=== PATIENT | male | born 1985 | race Caucasian/White ===

== ENCOUNTER 2016-05-28 19:12 | Inpatient (IN) | payer OTHER ==
[~2016-05-28] VITALS: Ht 188 cm; Wt 113.4 kg
[~2016-05-28 19:12] MED LIST: Dexamethasone 4mg/ml vial ONE; Ketorolac 30mg Inj ONE; LR 1000ml ONE; Lidocaine 1% MPF 10mg/ml 5ml ONE; Metoclopramide 10mg/2ml Inj ONE; Midazolam 2mg/2ml Inj ONE; Propofol 10mg/ml 20ml IV ONE; Succinylcholine 20mg/ml 10ml vial ONE; Zemuron 50mg/5ml Inj IV ONE; fentaNYL 250mcg/5ml ONE
[2016-05-28] MEDS ORDERED: Morphine Sulfate 4mg/ml Inj IVP ONE (19:45)
[2016-05-28] MEDS ORDERED: Tubing IV Cassette IV ONE (19:46)
--- NOTE | 2016-05-28 19:47 | Emergency Room Report ---
History of Present Illness General Chief Complaint: Abdominal Pain Source: Patient Present Illness HPI Patient presents with complaints of right lower quadrant abdominal pain reports onset last night patient had an episode of vomiting as well Questionable one episode of diarrhea however as the pain localized to the right lower quadrant he was concerning came to the ER Denies any fevers or chills denies any chest pain or shortness of breath pain is 5/10 patient denies any previous surgeries denies any fall or trauma pain is sharp denies any radiation Allergies: Coded Allergies: No Known Allergies (Unverified , 05/28/16) Patient History Past Medical History: see triage record Pertinent Family History: none Reviewed Nursing Documentation: PMH: Agreed, PSxH: Agreed Nursing Documentation-PMH Past Medical History: No Stated History Review of Systems All Other Systems: negative except mentioned in HPI Physical Exam Vital Signs Date Time Temp Pulse Resp B/P Pulse Ox O2 Delivery O2 Flow Rate FiO2 05/28/16 19:19 98.1 95 14 146/92 96 Room Air Sp02 EP Interpretation: reviewed, normal General Appearance: well appearing, no apparent distress Head: normocephalic, atraumatic Eyes: bilateral eye EOMI, bilateral eye PERRL ENT: hearing grossly normal, normal pharynx, TMs + canals normal, uvula midline Neck: full range of motion, supple, no meningismus, no bony tend Respiratory: lungs clear, normal breath sounds, no rhonchi, no respiratory distress, no retraction, no accessory muscle use Cardiovascular #1: normal peripheral pulses, regular rate, rhythm, no edema, no gallop, no JVD, no murmur Gastrointestinal: normal bowel sounds, soft, no mass, no organomegaly, non- distended, no guarding, no hernia, no pulsatile mass, no rebound, tenderness - Right lower quadrant Genitourinary: no CVA tenderness Neurologic: oriented x3, responsive, 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 designer III-XII nml as tested, motor strength/ tone normal, sensory intact Psychiatric: mood/affect normal Skin: normal color, no rash, warm/dry, palpation normal Lymphatic: normal inspection, no adenopathy Medical Decision Making Diagnostic Impression: Primary Impression: Acute appendicitis ER Course With the history exam and presentation, multiple differentials considered, including but not limited to appendicitis, gastritis, cholecystitis, diverticulitis Patient's CT exam does reveal evidence of acute appendicitis patient was provided with IV antibiotics and admitted for further inpatient care In consultation with general surgery Labs Test 05/28/16 19:40 White Blood Count 18.4 K/UL (4.8-10.8) Red Blood Count 4.76 M/UL (4.70-6.10) Hemoglobin 15.6 G/DL (14.2-18.0) Hematocrit 42.7 % (42.0-52.0) Mean Corpuscular Volume 90 FL (80-99) Mean Corpuscular Hemoglobin 32.8 PG (27.0-31.0) Mean Corpuscular Hemoglobin Concent 36.6 G/DL (32.0-36.0) Red Cell Distribution Width 11.2 % (11.6-14.8) Platelet Count 166 K/UL (150-450) Mean Platelet Volume 8.7 FL (6.5-10.1) Neutrophils (%) (Auto) 85.9 % (45.0-75.0) Lymphocytes (%) (Auto) 6.4 % (20.0-45.0) Monocytes (%) (Auto) 6.9 % (1.0-10.0) Eosinophils (%) (Auto) 0.1 % (0.0-3.0) Basophils (%) (Auto) 0.7 % (0.0-2.0) Prothrombin Time 10.3 SEC (9.30-11.50) Prothromb Time International Ratio 1.0 (0.9-1.1) Activated Partial Thromboplast Time 26 SEC (23-33) Urine Color Pale yellow Urine Appearance Clear Urine pH 8 (4.5-8.0) Urine Specific [place] 1.010 (1.005-1.035) Urine Protein 1+ (NEGATIVE) Urine Glucose (UA) Negative (NEGATIVE) Urine Ketones Negative (NEGATIVE) Urine Occult Blood Negative (NEGATIVE) Urine Nitrite Negative (NEGATIVE) Urine Bilirubin Negative (NEGATIVE) Urine Urobilinogen Normal MG/DL (0.0-1.0) Urine Leukocyte Esterase Negative (NEGATIVE) Urine RBC 0-2 /HPF (0 - 0) Urine WBC 0-2 /HPF (0 - 0) Urine Squamous Epithelial Cells None /LPF (NONE/OCC) Urine Bacteria Few /HPF (NONE) Sodium Level 137 mEQ/L (135-145) Potassium Level 3.5 mEQ/L (3.4-4.9) Chloride Level 95 mEQ/L (98-107) Carbon Dioxide Level 25 mEQ/L (20-30) Anion Gap 17 (5-15) Blood Urea Nitrogen 6 mg/dL (7-23) Creatinine 0.9 mg/dL (0.7-1.2) Estimat Glomerular Filtration Rate > 60 mL/min (>60) Glucose Level 122 mg/dL (74-106) Calcium Level 9.0 mg/dL (8.6-10.2) Total Bilirubin 0.8 mg/dL (0.0-1.2) Aspartate Amino Transf (AST/SGOT) 24 U/L (5-40) Alanine Aminotransferase (ALT/SGPT) 39 U/L (3-41) Alkaline Phosphatase 64 U/L (40-129) Total Protein 7.2 g/dL (6.6-8.7) Albumin 4.4 g/dL (3.5-5.2) Globulin 2.8 g/dL Albumin/Globulin Ratio 1.5 (1.0-2.7) Lipase 26 U/L (< 60) CT/MRI/US Diagnostic Results CT/MRI/US Diagnostic Results : Impression CT abdomen pelvis read by radiology as evidence of acute appendicitis no abscess Last Vital Signs Date Time Temp Pulse Resp B/P Pulse Ox O2 Delivery O2 Flow Rate FiO2 05/28/16 19:19 98.1 95 14 146/92 96 Room Air Status: improved Disposition: ADMITTED INPATIENT Condition: Serious Scripts No Active Prescriptions or Reported Meds TRINITY MAIN D.O. May 28, 2016 19:46
[2016-05-28 20:00] LABS: MEAN CORPUSCULAR HEMOGLOBIN 32.8 PG (27.0-31.0); MEAN CORPUSCULAR HGB CONC 36.6 G/DL (32.0-36.0); MEAN CORPUSCULAR VOLUME 90 FL (80-99); MEAN PLATELET VOLUME 8.7 FL (6.5-10.1); PLATELET COUNT 166 K/UL (150-450); RED BLOOD COUNT 4.76 M/UL (4.70-6.10); RED CELL DISTRIBUTION WIDTH 11.2 % (11.6-14.8); WHITE BLOOD COUNT 18.4 K/UL (4.8-10.8)
[2016-05-28 20:01] LABS: BASOPHILS % (AUTO) 0.7 % (0.0-2.0); EOSINOPHILS % (AUTO) 0.1 % (0.0-3.0); LYMPHOCYTES % (AUTO) 6.4 % (20.0-45.0); MONOCYTES % (AUTO) 6.9 % (1.0-10.0); NEUTROPHILS % (AUTO) 85.9 % (45.0-75.0)
[2016-05-28 20:03] LABS: APPEARANCE,URINE CLEAR; KETONES,URINE NEGATIVE (NEGATIVE); LEUKOCYTE ESTERASE ,URINE NEGATIVE (NEGATIVE); NITRITE,URINE NEGATIVE (NEGATIVE); PH,URINE 8 (4.5-8.0); PROTEIN,URINE 1+ (NEGATIVE); UROBILINOGEN,URINE NORMAL MG/DL (0.0-1.0)
[2016-05-28 20:11] LABS: BACTERIA,URINE FEW /HPF; RBC,URINE 0-2 /HPF (0 - 0); WBC,URINE 0-2 /HPF (0 - 0)
[2016-05-28 20:13] LABS: PROTHROMBIN TIME 10.3 SEC (9.30-11.50)
[2016-05-28 20:21] LABS: ALANINE AMINOTRANSFERASE 39 U/L (3-41); ALBUMIN/GLOBULIN RATIO 1.5 (1.0-2.7); ANION GAP 17 (5-15); ASPARTATE AMINO TRANSFERASE 24 U/L (5-40); CARBON DIOXIDE 25 mEQ/L (20-30); CHLORIDE 95 mEQ/L (98-107); CREATININE 0.9 mg/dL (0.7-1.2); GLOMERULAR FILTRATION RATE > 60 mL/min (>60); HEMOLYSIS 10; LIPASE 26 U/L (< 60); POTASSIUM 3.5 mEQ/L (3.4-4.9); SODIUM 137 mEQ/L (135-145); TOTAL PROTEIN 7.2 g/dL (6.6-8.7)
[2016-05-28] MEDS ORDERED: Piperacillin/Tazobactam 3.375 GM in NS 110 ML IVPB ONE (20:45)
[2016-05-28] MEDS ORDERED: NS 110 ML ONE (20:51)
[2016-05-28] MEDS ORDERED: Zosyn 3.375gm inj ONE (20:51)
[2016-05-28 21:21] VITALS: BP 122/74
[2016-05-28] MEDS ORDERED: Bupivacaine w/Epi 0.25% 30ml Vial INJ ONE (22:12)
[2016-05-28 22:15] VITALS: BP 129/79
--- NOTE | 2016-05-28 22:32 | Anethesia Preoperative Eval ---
Anesthesia Pre-op PMH/ROS General Date of Evaluation: May 28, 2016 Anesthesiologist: José Miguel ASA Score: ASA 2 - Emergency Mallampati Score Class I : Soft palate, uvula, fauces, pillars visible Class II: Soft palate, uvula, fauces visible Class III: Soft palate, base of uvula visible Class IV: Only hard plate visible Mallampati Classification: Class II Surgeon: Emmett Diagnosis: Acute appendicitis Surgical Procedure: Laparoscopic appendectomy Anesthesia History: none Family History: no anesthesia problems Allergies: Coded Allergies: No Known Allergies (Unverified , 05/28/16) Medications: see eMAR Past Medical History Cardiovascular: Denies: CAD, HTN, RI, arrhythmia, other, valve dz Pulmonary: Denies: COPD, LOU, asthma, other Gastrointestinal/Genitourinary: Reports: GERD, Denies: CRI, ESRD, other Neurologic/Psychiatric: Denies: CVA, TIA, dementia, depression/anxiety, other Endocrine: Denies: DM, hypothyroidism, other, steroids HEENT: Denies: [place] (L), [place] (R), cataract (L), cataract (R), glaucoma, other Hematology/Immune: Denies: DVT, anemia, bleeding disorder, other Musculoskeletal/Integumentary: Denies: DDD, DJD, OA, RA, edema, other PSxH Narrative: Denies Anesthesia Pre-op Phys. Exam Physician Exam Last Vital Signs Date Time Temp Pulse Resp B/P Pulse Ox O2 Delivery O2 Flow Rate FiO2 05/28/16 22:15 84 22 129/79 97 Room Air 05/28/16 21:21 99.5 Constitutional: NAD Cardiovascular: RRR Respiratory: CTA Airway Exam Mallampati Score: Class II MO: limited TMD: <6FB ROM: full Teeth: intact Anesthesia Pre-op A/P Labs Hematology Test 05/28/16 19:40 White Blood Count 18.4 K/UL (4.8-10.8) H Red Blood Count 4.76 M/UL (4.70-6.10) Hemoglobin 15.6 G/DL (14.2-18.0) Hematocrit 42.7 % (42.0-52.0) Mean Corpuscular Volume 90 FL (80-99) Mean Corpuscular Hemoglobin 32.8 PG (27.0-31.0) H Mean Corpuscular Hemoglobin Concent 36.6 G/DL (32.0-36.0) H Red Cell Distribution Width 11.2 % (11.6-14.8) L Platelet Count 166 K/UL (150-450) Mean Platelet Volume 8.7 FL (6.5-10.1) Neutrophils (%) (Auto) 85.9 % (45.0-75.0) H Lymphocytes (%) (Auto) 6.4 % (20.0-45.0) L Monocytes (%) (Auto) 6.9 % (1.0-10.0) Eosinophils (%) (Auto) 0.1 % (0.0-3.0) Basophils (%) (Auto) 0.7 % (0.0-2.0) Coagulation Test 05/28/16 19:40 Prothrombin Time 10.3 SEC (9.30-11.50) Prothromb Time International Ratio 1.0 (0.9-1.1) Activated Partial Thromboplast Time 26 SEC (23-33) Chemistry Test 05/28/16 19:40 Sodium Level 137 mEQ/L (135-145) Potassium Level 3.5 mEQ/L (3.4-4.9) Chloride Level 95 mEQ/L (98-107) L Carbon Dioxide Level 25 mEQ/L (20-30) Anion Gap 17 (5-15) H Blood Urea Nitrogen 6 mg/dL (7-23) L Creatinine 0.9 mg/dL (0.7-1.2) Estimat Glomerular Filtration Rate > 60 mL/min (>60) Glucose Level 122 mg/dL (74-106) H Calcium Level 9.0 mg/dL (8.6-10.2) Total Bilirubin 0.8 mg/dL (0.0-1.2) Aspartate Amino Transf (AST/SGOT) 24 U/L (5-40) Alanine Aminotransferase (ALT/SGPT) 39 U/L (3-41) Alkaline Phosphatase 64 U/L (40-129) Total Protein 7.2 g/dL (6.6-8.7) Albumin 4.4 g/dL (3.5-5.2) Globulin 2.8 g/dL Albumin/Globulin Ratio 1.5 (1.0-2.7) Lipase 26 U/L (< 60) Risk Assessment & Plan Assessment: ASA IIE Plan: GA-ETT Status Change Before Surgery: No Pre-Antibiotics Drug: TBD SCOTT SMILEY M.D. May 28, 2016 22:32
[2016-05-28] MEDS ORDERED: LR 1000ml 1,000 ML IVLG SCH (23:20)
--- NOTE | 2016-05-28 23:21 | Immediate Post-Op Evaluation ---
Immediate Post-Op Evalulation Immediate Post-Op Evalulation Procedure: Laparoscopic appendectomy Date of Evaluation: May 28, 2016 Time of Evaluation: 11:56 IV Fluids: 1L Blood Products: 0 Estimated Blood Loss: 50 Urinary Output: 0 Blood Pressure Systolic: 128 Blood Pressure Diastolic: 85 Pulse Rate: 99 Respiratory Rate: 16 O2 Sat by Pulse Oximetry: 100 Temperature (Fahrenheit): 98.7 Pain Score (1-10): 0 Nausea: No Vomiting: No Complications 0 Patient Status: awake, reacts, patent, none Hydration Status: adequate Drug: Zosyn 3.375g Given Within 1 Hr of Incision: Yes Time Given: 10:05 SCOTT SMILEY M.D. May 28, 2016 23:21
[2016-05-28] MEDS ORDERED: Labetalol 5mg/ml 20ml vial IV PRN (23:30)
[2016-05-28] MEDS ORDERED: fentaNYL 100 mcg/2 mL IV PRN (23:30)
[2016-05-28] MEDS ORDERED: Hydromorphone 0.5mg/0.5ml inj IVP PRN (23:30)
[2016-05-28] MEDS ORDERED: Metoclopramide 10mg/2ml Inj IVP PRN (23:30)
[2016-05-28] MEDS ORDERED: DiphenhydrAMINE 50mg/ml Inj IVP PRN (23:30)
[2016-05-28] MEDS ORDERED: Ketorolac 30mg Inj IV PRN (23:30)
[2016-05-28] MEDS ORDERED: Midazolam 2mg/2ml Inj IVP PRN (23:30)
[2016-05-28 23:49] VITALS: BP 128/85
--- NOTE | 2016-05-28 23:50 | Pre-Procedure Note/Attestation ---
Pre-Procedure Note/Attestation Complete Prior to Procedure Planned Procedure: not applicable Procedure Narrative: laparoscopic appendeectomy, possible open procedure Indications for Procedure Pre-Operative Diagnosis: acute appendicitis Attestation I attest that I discussed the nature of the procedure; its benefits; risks and complications; and alternatives (and the risks and benefits of such alternatives ), prior to the procedure, with the patient (or the patient's legal associate sales representative). I attest that, if there was a reasonable possibility of needing a blood transfusion, the patient (or the patient's legal associate sales representative) was given the [facility] standardized written summary, pursuant to the [place] [place] Blood Safety Act ([place] Health and Safety Code # 1645, as amended). I attest that I re-evaluated the patient just prior to the surgery and that there has been no change in the patient's H&P, except as documented below:none JENNIFER GUIDRY May 28, 2016 23:50
--- NOTE | 2016-05-28 23:53 | Brief Operative Note ---
Immediate Post Operative Note Operative Note Pre-op Diagnosis: acute appendicitis Procedure: laparoscopic appendectomy Post-op Diagnosis: same Post-op Diagnosis: same as pre-op Surgeon: Omar Anesthesiologist: howard calvert Anesthesia: general, local Specimen: yes Complications: none Condition: stable Estimated Blood Loss: minimal Drains: none Implant(s) used?: No JENNIFER GUIDRY May 28, 2016 23:53
[2016-05-28 23:54] VITALS: BP 121/79
[2016-05-28 23:57] VITALS: BP 121/86
[2016-05-29] VITALS (7 sets, daily range): BP systolic 118–129; BP diastolic 69–77
[2016-05-29] MEDS ORDERED: Norco 5mg/325mg tab ORAL PRN
[2016-05-29] MEDS ORDERED: Hydromorphone 0.5mg/0.5ml inj IVP PRN
--- NOTE | 2016-05-29 02:37 | History and Physical Report ---
DATE OF ADMISSION: 05/28/2016 SURGEON: Cole Christine M.D. ADMITTING DIAGNOSIS: Acute appendicitis. PRESENT HISTORY: This is a very pleasant 30-year-old gentleman, seen at the request of emergency room physician. The patient presents with one-day history of abdominal pain localized in the right lower quadrant with nausea. The patient has a CT scan that has shown the presence of a dilated appendix with surrounding changes with acute appendicitis. No abscess or extraluminal area was identified. The patient is seen for same. PAST MEDICAL HISTORY: He has no major medical problems. He has had no previous hospitalizations. PAST SURGICAL HISTORY: No previous surgeries. 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 REVIEW OF SYSTEMS: Heart: No chest pain, palpitations, shortness of breath, or angina. Pulmonary: No history of asthma, bronchitis, emphysema, pneumonia, or tuberculosis. Gastrointestinal: No history of peptic ulcer disease, gastritis, or reflux esophagitis. Genitourinary: No history of dysuria, hematuria, or kidney failure. PHYSICAL EXAMINATION: GENERAL: Reveals a well-developed, pleasant gentleman in mild distress. Alert and cooperative. VITAL SIGNS: Show a temperature of 99.5 degrees, a pulse of 98, respirations 24, and blood pressure of 122/74. HEENT: Normocephalic. No scleral icterus. Pupils are reactive to light. His throat is clear. NECK: Supple. LUNGS: Clear bilaterally. HEART: Normal sinus rhythm. ABDOMEN: Soft. There is point tenderness at McBurney's point. No rigidity. Some involuntary guarding noted. GENITALIA: Normal male. EXTREMITIES: No clubbing, cyanosis, or edema. LABORATORY AND DIAGNOSTIC DATA: Laboratory exams show a white blood count of 18.4, hemoglobin of 15.6, and hematocrit of 42.7. The chemistry shows a sodium of 137, potassium 3.5, chloride 95, bicarb 25, BUN of 6, and creatinine 0.9. Total bilirubin 0.8. AST of 24, ALT of 39, and alkaline phosphatase of 64. Total protein 7.4. Albumin 4.4. Lipase is 26. CT scan was reviewed and confirms presence of acute appendicitis. PLAN: The patient is admitted to the hospital. He will undergo a laparoscopic appendectomy, possible open appendectomy. The procedure, risks, benefits, and complications including infection, anesthetic complications, possible injury to other organs, possible need to convert to an open procedure were discussed in detail with the patient. His questions were answered. He is being prepped for surgery. Cole Christine M.D. DR: SANTIAGO JOB#: [id number] CC:
--- NOTE | 2016-05-29 07:32 | 48 Hour Post Anesthesia Eval ---
Post Anesthesia Evaluation Procedure: Laparoscopic appendectomy Date of Evaluation: May 29, 2016 Time of Evaluation: 07:30 Blood Pressure Systolic: 121 0: 71 Pulse Rate: 61 Respiratory Rate: 18 Temperature (Fahrenheit): 97.5 O2 Sat by Pulse Oximetry: 95 Airway: patent Nausea: No Vomiting: No Pain Intensity: 2 Hydration Status: adequate Cardiopulmonary Status: Stable Mental Status/LOC: patient returned to baseline Follow-up Care/Observations: 0 Post-Anesthesia Complications: 0 Follow-up care needed: N/A Fred Olea MD May 29, 2016 07:32
[2016-05-29 08:18] LABS: MEAN CORPUSCULAR HEMOGLOBIN 31.4 PG (27.0-31.0); MEAN CORPUSCULAR HGB CONC 34.2 G/DL (32.0-36.0); MEAN CORPUSCULAR VOLUME 92 FL (80-99); MEAN PLATELET VOLUME 8.8 FL (6.5-10.1); PLATELET COUNT 202 K/UL (150-450); RED CELL DISTRIBUTION WIDTH 11.6 % (11.6-14.8)
[2016-05-29 08:51] LABS: ANION GAP 14 (5-15); CALCIUM 9.1 mg/dL (8.6-10.2); CARBON DIOXIDE 27 mEQ/L (20-30); CHLORIDE 99 mEQ/L (98-107); CREATININE 0.9 mg/dL (0.7-1.2); GLOMERULAR FILTRATION RATE > 60 mL/min (>60); HEMOLYSIS 1; SODIUM 140 mEQ/L (135-145)
[2016-05-29] MEDS ORDERED: Heparin 5000 units/ml inj SUBQ SCH (09:00)
--- NOTE | 2016-05-29 09:25 | Diagnostic Imaging Report ---
Clinical Indication: Right lower quadrant abdominal pain Technique: No oral contrast utilized, per emergency room physician request IV administration nonionic contrast. Venous phase spiral acquisition obtained through the abdomen and pelvis. Multiplanar reconstructions were generated. Total dose length product 1110 mGycm. CTDIvol(s) 18 mGy. Dose reduction achieved using automated exposure control Comparison: None Findings: The appendix is enlarged, fluid-filled, measuring 12 mm in diameter. There is infiltration of the periappendiceal fat. No associated fluid collections or extraluminal gas demonstrated. No evidence of diverticulosis or diverticulitis. No small bowel distention. No free or loculated intraperitoneal air or fluid is evident. Distal esophagus, stomach, duodenum are unremarkable. The liver is very mildly hypoattenuating. No focal abnormality. The gallbladder, bile ducts, pancreas, spleen, adrenals, kidneys are all unremarkable. No retroperitoneal or mesenteric mass or adenopathy. No pelvic mass or adenopathy. There is equivocally mild bladder wall thickening. However, it is nondistended. The included lung bases are clear except for some posterior dependent atelectatic changes. The bones are unremarkable. Impression: Enlarged appendix with perinephric fat infiltration, consistent with uncomplicated acute appendicitis Equivocal mild bladder wall thickening, likely artifact of under distention. Mild cystitis changes not excludable. Mild fatty liver This agrees with the preliminary interpretation provided overnight by [facility] teleradiology service. The CT scanner at [facility] is accredited by the [employer] and the scans are performed using protocols designed to limit radiation exposure to as low as reasonably achievable to attain images of sufficient resolution adequate for diagnostic evaluation.
[2016-05-29 10:14] LABS: BAND NEUTROPHILS % (MANUAL) 0 % (0-8); BASOPHILS % (MANUAL) 0 % (0-2); EOSINOPHILS % (MANUAL) 0 % (0-3); LYMPHOCYTES % (MANUAL) 7 % (20-45); NEUTROPHILS % (MANUAL) 88 % (45-75); PLATELET ESTIMATE ADEQUATE; PLATELET MORPHOLOGY NORMAL; TOTAL CELLS COUNTED 100
--- NOTE | 2016-05-29 10:47 | Operative Note - Dictated ---
DATE OF OPERATION: 05/28/2016 SURGEON: Cole Christine M.D. ANESTHESIA: General anesthesia endotracheal intubation. Dr Ryan PREOPERATIVE DIAGNOSIS: Acute appendicitis. POSTOPERATIVE DIAGNOSIS: Acute appendicitis. PROCEDURE: Laparoscopic appendectomy. INDICATION FOR SURGERY: This is a very pleasant 30-year-old gentleman previously healthy and presented with a one-day history of abdominal pain localized in the right lower quadrant. He had a white count of with 18.4, he is point tender to the right lower quadrant. CT scan confirmed the presence of evidence of acute appendicitis with stranding or abscess formation. The patient was seen in the emergency room for the surgery. Indications for the procedures benefits, complications including bleeding, infection, anesthetic complications, possible need to convert to an open procedure possible injury to other organs. Discussed in detail with the patient and his , they understand above agrees to proceed. OPERATIVE FINDINGS: The patient had acute appendicitis with the appendix markedly inflamed and swollen, easily identified, and free in the abdominal cavity. PROCEDURE IN DETAIL: The patient was identified in the preoperative holding area. The surgery was discussed. She was brought in the operating room just under general anesthesia and endotracheal intubation. The abdomen was shaved, prepped, and draped in a sterile manner. Time-out performed confirming the patient's position, procedure, anesthesia, antibiotic, and allergy status. An infraumbilical incision made, through which was passed a Veress needle, checked with irrigation, aspiration, water drip test, connected to a CO2 insufflator, inflated to 15 mmHg taking 4 liters to achieve this. The Veress needle was removed. The aperture was enlarged. A 5 mm trocar was placed through the abdominal cavity through which we passed a 30-degree laparoscope. The entire abdomen was then panscoped and then attention was focused on the right lower quadrant, noted to be some purulent-appearing fluid. Under laparoscopic vision, second part of trocar placed in the right upper quadrant and a 10 to 12 cm trocar was placed in the suprapubic area. The appendix was grasped with a grasper and carefully mobilized using a Blanche dissector, a window was created between the mesoappendix near its base and IVON anastomosis was passed across the mesoappendix and fired, a second stapler was passed across the base of the appendix at its junction with the cecum and fired thus freeing up the appendix, it was placed in the Endopouch bag and delivered through the suprapubic incision and sent to the pathology for examination. At this point, the right lower quadrant was copiously irrigated with a liter of warm normal saline fluid, careful check to make sure there is no active bleeding. The entire abdomen was once again panscoped to make sure there is no inadvertent bowel or blood vessel injury, none was seen. The trocars were removed under laparoscopic vision. The pneumoperitoneum released. The suprapubic incision closed with 0 Vicryl. The fascia was closed with 4-0 Vicryl. The skin incisions closed with 4-0 Vicryl. A total of 20 mL of 0.25% Marcaine with epinephrine locally infiltrated and then closed with Steri-Strips and dry sterile dressing. Blood loss for entire procedure was minimal, less than 3 mL. The patient was extubated and sent to recovery room in stable condition, awake and alert. Cole Christine M.D. DR: George JOB#: [id number] CC: ROYA
--- NOTE | 2016-05-29 11:06 | General Progress Note ---
Progress Note Progress Note Surgery: patient seen and examined at bedside. no acute events. doing well. pain minimal and improved as compared to pre op. no n/v/f/c. tolerating diet. ambulatory. +flatus. Afebrile, HD stable, exam benign. Abdomen soft, nt/nd, BS+, incisions c/d/i. Electrolytes improved. leukocytosis still (likely reactive post op, no signs of symptoms of active infection) plan: okay to d/c home from surgical standpoint diet as tolerated ambulate and out of bed keep wounds clean and dry okay to shower remove dressings today or tomorrow, keep steristrips in place Rx norco. follow up in 1 week. card and appointment information given to patient at bedside. Mike Clark May 29, 2016 11:06
--- NOTE | 2016-05-29 13:46 | History & Physical ---
History and Physical History & Physicial 1) Acute appendixcitis s/p Lap appendectomy Will d/c home #[id number] ABRAN MATUTE May 29, 2016 13:46
--- NOTE | 2016-05-29 21:17 | History and Physical Report ---
DATE OF ADMISSION: 05/28/2016 HISTORY AND PHYSICAL AND DISCHARGE SUMMARY HISTORY OF PRESENT ILLNESS: This is a very pleasant 30-year-old, white male, who has been in his usual state of health and very healthy, started to have some nausea and vomiting and afterwards started to have some right lower quadrant abdominal pain which gradually gotten worse on Sunday night 05/27/2016 and by 05/28/2016 has been having some chills, fever, and abdominal pain has been getting worse, decided to come to the emergency room of [facility] where he was evaluated and CAT scan of the abdomen has revealed evidence of an acute appendicitis and underwent emergent laparoscopic appendectomy by Dr. Cole Christine. His white count has been in the range of 18,400, was given one dose of Zosyn intravenous before the surgery and he has been admitted to the hospital after surgery. PAST MEDICAL HISTORY: Essentially negative except some degree of obesity and ADHD. PAST SURGICAL HISTORY: None. SOCIAL HISTORY: Does not smoke. Does not drink alcohol. He is . Does not have any children. 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 MEDICATIONS: He is taking Adderall 5 mg p.o. daily for ADHD. ALLERGIES: NKDA. REVIEW OF SYSTEMS: General: He has not had any chills or fever at this point, has had some chills before coming to the hospital. Cardiovascular: Denies any chest pain, dyspnea with exertion, orthopnea. Skin: Denies any rash or photosensitivity. Musculoskeletal: Denies any arthralgia or myalgia. Genitourinary: Denies any urinary foaminess, hematuria, or dysuria. Gastrointestinal: The patient has had some right lower quadrant abdominal pain which was found to be appendicitis. Neurological: Denies any paresthesia, muscle weakness, diplopia, or seizure. Hematological: Denies any easy bruising or easy bleeding. Respiratory: Denies any cough, purulent sputum production, hemoptysis, or wheezing. Endocrine: Never been diagnosed with diabetes mellitus, polydipsia, polyuria, cold or heat intolerance. The remainder of the review of the systems has been essentially negative. PHYSICAL EXAMINATION: GENERAL: The patient does not seem to be in much acute distress VITAL SIGNS: At this point, blood pressure is 129/74, pulse 61, respiration 18, temperature 98.3. HEENT: Head is atraumatic. Eyes, pupils reactive to light. No evidence of papilledema. Ears, canals are clear. Tympanic membranes are intact. Nose nares are patent without any nasal discharge. Throat without inflammation or exudate. NECK: Supple. Jugular venous distention is within normal limits. No cervical adenopathy. No thyromegaly. HEART: Regular rhythm. No gallop. LUNGS: Clear to auscultation. ABDOMEN: Supple. Bowel sounds positive. No hepatosplenomegaly. No bruits. laparoscopic appendectomy. EXTREMITIES: Lower extremity shows no cyanosis or clubbing. No pedal edema. NEUROLOGICAL: Cranial nerves are intact. There is no focal neurological deficits present. LABORATORY DATA: Showing a WBC of 19, hemoglobin 15, hematocrit 44, platelets of 202,000, 88% neutrophils, 7% lymphocytes. Sodium 140, potassium 4.0, chloride 99, carbon dioxide 27, BUN 7, creatinine 0.9. IMPRESSION: 1. Evidence of acute appendicitis. 2. He underwent laparoscopic appendectomy. 3. Leukocytosis probably secondary to appendicitis however the source of the infection is gone, does not have any signs of sepsis. PLAN: Surgical team do not feel that he needs an antibiotic at this point. He is going to be discharged in a stable condition. Followup with surgeon in one week post discharge. Escobar Majano M.D. DR: Harsh JOB#: [id number] CC:
== END 2016-05-29 15:20 | disposition home or self-care (01) | DRG 343 ==
LOC: EMR 19:35 → 3E 20:54 → EDBEDREQ 21:48
PROC: 0DTJ4ZZ Resection of Appendix, Percutaneous Endoscopic Approach (ICD-10-PCS; principal; 2016-05-28 22:30)
DX: K35.80 Unspecified acute appendicitis (principal); E66.9 Obesity, unspecified; F90.9 Attention-deficit hyperactivity disorder, unspecified type
CPT/HCPCS: 36415; 74177; 80048; 80053; 81003; 83690; 85007; 85025; 85610; 85730; 94003; 94150; J2250; J2405; J2765